=== PATIENT | male | born 1965 | race Caucasian/White ===

== ENCOUNTER 2020-05-25 09:05 | Inpatient (IN) | payer OTHER ==
[2020-05-25] MEDS ORDERED: KETOROLAC 15 MG/ML 1 ML VIAL IVP STA (10:22)
[2020-05-25] MEDS ORDERED: SODIUM CHLORIDE 0.9% 2,000 ML IV ONE (10:22)
[2020-05-25 10:31] LABS: Basophils % (A) 0 %; Eosinophils # (A) 0.4 k/uL (0-0.7); Eosinophils % (A) 2 %; HCT 51.9 % (39.0-53.0); HGB 18.1 gm/dL (13.0-17.5); Lymphocytes # (A) 1.1 k/uL (1.0-4.8); Lymphocytes % (A) 6 %; MCH 32.5 pg (25.0-35.0); MCHC 34.9 g/dL (31.0-37.0); MCV 93.2 fL (80.0-100.0); Mean Platelet Volume 7.7; Monocytes # (A) 0.8 k/uL (0-1.0); Monocytes % (A) 4 %; Neutrophils # (A) 15.6 k/uL (1.3-7.7); Neutrophils % (A) 86 %; Platelet Count 255 k/uL (150-450); RBC 5.57 m/uL (4.30-5.90); RDW 13.6 % (11.5-15.5)
[2020-05-25 10:37] LABS: Appearance,Urine Clear (Clear); Bilirubin,Urine 1+ (Negative); Blood,Urine Trace (Negative); Color,Urine Yellow; Glucose,Urine (UA) Negative (Negative); Hyaline Casts,Urine 4 /lpf (0-2); Ketones,Urine Negative (Negative); Leukocyte Esterase,Urine Small (Negative); Mucus,Urine Few /hpf; Nitrite,Urine Negative (Negative); Protein,Urine 1+ (Negative); RBC,Urine 3 /hpf (0-5); Specific Gravity,Urine 1.024 (1.001-1.035); WBC,Urine 8 /hpf (0-5)
[2020-05-25 10:46] LABS: Albumin 4.3 g/dL (3.5-5.0); Calcium 9.5 mg/dL (8.4-10.2); Potassium 4.4 mmol/L (3.5-5.1); Total Bilirubin 2.3 mg/dL (0.2-1.3); Total Protein 7.9 g/dL (6.3-8.2)
--- NOTE | 2020-05-25 10:58 | ED ---
Abdominal Pain HPI - General Chief Complaint: Abdominal Pain Stated Complaint: GALLBLADDER Time Seen by Provider: 05/25/20 10:10 Source: patient, RN notes reviewed Mode of arrival: ambulatory Limitations: no limitations - History of Present Illness Initial Comments: This a 54-year-old male presents emergency Department chief complaint of right- sided abdominal pain. Patient states started a few days ago, states he fell he ate too much, he did vomit several times. Though has not alleviated his symptoms. He states it does not matter what he eats or drinks at this point but states last 24 hours is not had any oral intake. Patient reports fevers chills draws not feeling well. Patient states that he's had some good bowel movements he got initially was constipated but states that has not helped either. No prior abdominal surgeries. - Related Data Home Medications Medication Instructions Recorded Confirmed Lisinopril [Prinivil] 10 mg PO DAILY 05/25/20 05/25/20 Allergies Allergy/AdvReac Type Severity Reaction Status Date / Time No Known Allergies Allergy Verified 05/25/20 10:52 Review of Systems ROS Statement: Those systems with pertinent positive or pertinent negative responses have been documented in the HPI. ROS Other: All systems not noted in ROS Statement are negative. Past Medical History Past Medical History: No Reported History History of Any Multi-Drug Resistant Organisms: None Reported Past Surgical History: No Surgical Hx Reported Past Psychological History: PTSD Smoking Status: Never smoker Past Alcohol Use History: Occasional Past Drug Use History: None Reported General Exam Limitations: no limitations General appearance: alert, in no apparent distress Head exam: Present: atraumatic, normocephalic, normal inspection Eye exam: Present: normal appearance, PERRL, EOMI. Absent: scleral icterus, conjunctival injection, periorbital swelling ENT exam: Present: normal exam, normal oropharynx, mucous membranes moist Neck exam: Present: normal inspection, full ROM. Absent: tenderness, meningismus, lymphadenopathy Respiratory exam: Present: normal lung sounds bilaterally. Absent: respiratory distress, wheezes, rales, rhonchi, stridor Cardiovascular Exam: Present: regular rate, normal rhythm, normal heart sounds. Absent: systolic murmur, diastolic murmur, rubs, gallop, clicks GI/Abdominal exam: Present: soft, tenderness (Moderate right-sided upper and lower), normal bowel sounds. Absent: distended, guarding, rebound, rigid Back exam: Absent: CVA tenderness (R), CVA tenderness (L) Neurological exam: Present: alert Skin exam: Present: warm, dry, intact, normal color. Absent: rash Course Vital Signs 05/25/20 09:09 Temperature 97.9 F Pulse Rate 93 Respiratory 18 Rate Blood Pressure 147/98 O2 Sat by Pulse 97 Oximetry Medical Decision Making - Medical Decision Making Patient CT shows of evidence of acute cholecystitis. There is questionable renal mass. Patient will be admitted to surgery was started on broad-spectrum antibiotics. Case discussed with Dr. Mcgarry. EKG will be obtained. - Lab Data Result diagrams: 05/25/20 10:19 05/25/20 10:19 Lab Results 05/25/20 05/25/20 05/25/20 Range/Units 10:19 10:19 10:19 WBC 18.0 H (3.8-10.6) k/uL RBC 5.57 (4.30-5.90) m/uL Hgb 18.1 H (13.0-17.5) gm/dL Hct 51.9 (39.0-53.0) % MCV 93.2 (80.0-100.0) fL MCH 32.5 (25.0-35.0) pg MCHC 34.9 (31.0-37.0) g/dL RDW 13.6 (11.5-15.5) % Plt Count 255 (150-450) k/uL MPV 7.7 Neutrophils % 86 % Lymphocytes % 6 % Monocytes % 4 % Eosinophils % 2 % Basophils % 0 % Neutrophils # 15.6 H (1.3-7.7) k/uL Lymphocytes # 1.1 (1.0-4.8) k/uL Monocytes # 0.8 (0-1.0) k/uL Eosinophils # 0.4 (0-0.7) k/uL Basophils # 0.0 (0-0.2) k/uL Sodium 137 (137-145) mmol/L Potassium 4.4 (3.5-5.1) mmol/L Chloride 100 (98-107) mmol/L Carbon Dioxide 24 (22-30) mmol/L Anion Gap 13 mmol/L BUN 16 (9-20) mg/dL Creatinine 1.09 (0.66-1.25) mg/dL Est GFR (CKD-EPI)AfAm 89 (>60 ml/min/1.73 sqM) Est GFR (CKD-EPI)NonAf 77 (>60 ml/min/1.73 sqM) Glucose 118 H (74-99) mg/dL Plasma Lactic Acid Mike (0.7-2.0) mmol/L Calcium 9.5 (8.4-10.2) mg/dL Total Bilirubin 2.3 H (0.2-1.3) mg/dL AST 30 (17-59) U/L ALT 21 (4-49) U/L Alkaline Phosphatase 73 (38-126) U/L Total Protein 7.9 (6.3-8.2) g/dL Albumin 4.3 (3.5-5.0) g/dL Amylase 55 (30-110) U/L Lipase 53 (23-300) U/L Urine Color Yellow Urine Appearance Clear (Clear) Urine pH 6.0 (5.0-8.0) Ur Specific [place] 1.024 (1.001-1.035) Urine Protein 1+ H (Negative) Urine Glucose (UA) Negative (Negative) Urine Ketones Negative (Negative) Urine Blood Trace H (Negative) Urine Nitrite Negative (Negative) Urine Bilirubin 1+ H (Negative) Urine Urobilinogen 3.0 (<2.0) mg/dL Ur Leukocyte Esterase Small H (Negative) Urine RBC 3 (0-5) /hpf Urine WBC 8 H (0-5) /hpf Hyaline Casts 4 H (0-2) /lpf Urine Mucus Few H (None) /hpf 05/25/20 Range/Units 10:24 WBC (3.8-10.6) k/uL RBC (4.30-5.90) m/uL Hgb (13.0-17.5) gm/dL Hct (39.0-53.0) % MCV (80.0-100.0) fL MCH (25.0-35.0) pg MCHC (31.0-37.0) g/dL RDW (11.5-15.5) % Plt Count (150-450) k/uL MPV Neutrophils % % Lymphocytes % % Monocytes % % Eosinophils % % Basophils % % Neutrophils # (1.3-7.7) k/uL Lymphocytes # (1.0-4.8) k/uL Monocytes # (0-1.0) k/uL Eosinophils # (0-0.7) k/uL Basophils # (0-0.2) k/uL Sodium (137-145) mmol/L Potassium (3.5-5.1) mmol/L Chloride (98-107) mmol/L Carbon Dioxide (22-30) mmol/L Anion Gap mmol/L BUN (9-20) mg/dL Creatinine (0.66-1.25) mg/dL Est GFR (CKD-EPI)AfAm (>60 ml/min/1.73 sqM) Est GFR (CKD-EPI)NonAf (>60 ml/min/1.73 sqM) Glucose (74-99) mg/dL Plasma Lactic Acid Mike 1.2 (0.7-2.0) mmol/L Calcium (8.4-10.2) mg/dL Total Bilirubin (0.2-1.3) mg/dL AST (17-59) U/L ALT (4-49) U/L Alkaline Phosphatase (38-126) U/L Total Protein (6.3-8.2) g/dL Albumin (3.5-5.0) g/dL Amylase (30-110) U/L Lipase (23-300) U/L Urine Color Urine Appearance (Clear) Urine pH (5.0-8.0) Ur Specific [place] (1.001-1.035) Urine Protein (Negative) Urine Glucose (UA) (Negative) Urine Ketones (Negative) Urine Blood (Negative) Urine Nitrite (Negative) Urine Bilirubin (Negative) Urine Urobilinogen (<2.0) mg/dL Ur Leukocyte Esterase (Negative) Urine RBC (0-5) /hpf Urine WBC (0-5) /hpf Hyaline Casts (0-2) /lpf Urine Mucus (None) /hpf Disposition Clinical Impression: Acute cholecystitis Disposition: ADMITTED IP TO THIS HOSP Condition: Fair Referrals: Dayne Hyde DO [Primary Care Provider] - 1-2 days
--- NOTE | 2020-05-25 11:14 | CT ---
EXAMINATION TYPE: CT abdomen pelvis w con DATE OF EXAM: 05/25/2020 COMPARISON: None HISTORY: RUQ pain with abdominal distension. CT DLP: 1471.9 mGycm CONTRAST: CT scan of the abdomen and pelvis is performed without Oral Contrast and with IV Contrast, patient in jected with 100 mL of Isovue 300. FINDINGS: LUNG BASES-: No visible nodule. No infiltrate. Basilar linear atelectasis noted. LIVER/GB: There is distention of the gallbladder with gallbladder wall thickening and pericholecystic inflammatory change. The findings are felt to be compatible with acute cholecystitis. No space occup zack hepatic lesion. Biliary tree is of normal caliber. PANCREAS: No inflammation. No distinct mass. SPLEEN: No splenic enlargement. No lesion seen. ADRENALS: No nodule. Mild left-sided adrenal glandular hyperplasia. KIDNEYS/BLADDER: No hydronephrosis. No nephrolithiasis. Solid exophytic mass arising from the lower pole of the right kidney measuring 3.6 cm in maximal dimension. Neoplasm is not excluded. Urology co nsult advised. Urinary bladder grossly unremarkable. BOWEL: Normal appendix. Normal bowel caliber. No inflammation. GENITAL ORGANS: No gross abnormality. LYMPH NODES: No greater than 1cm abdominal or pelvic lymph nodes are appreciated. AORTA: No significant abnormality. OSSEOUS STRUCTURES: No significant abnormality is seen. OTHER: There is a fat-containing right inguinal hernia. IMPRESSION: 1. Findings are compatible with acute cholecystitis. 2. Solid mass arising from the lower pole of the right kidney. Malignancy such as a renal cell carcin champ not excluded.
[2020-05-25] MEDS ORDERED: PIPERACILLIN-TAZOBACTAM 3.375 GM in SODIUM CHLORIDE 0.9% 100 ML IVPB STA (11:20)
[2020-05-25] MEDS ORDERED: NALOXONE 0.4 MG/ML 1 ML VIAL IV PRN (11:33)
[2020-05-25] MEDS ORDERED: HYDROmorphone 0.5 MG/0.5 ML SYRINGE IVP PRN (11:33)
[2020-05-25] MEDS ORDERED: ONDANSETRON 4 MG/2 ML VIAL IVP PRN (11:33)
[2020-05-25] MEDS: SODIUM CHLORIDE 0.9% 1,000 ML IV SCH (12:15)
[2020-05-25] MEDS ORDERED: ACETAMINOPHEN TAB 500 MG TAB PO PRN (13:12)
[2020-05-25] MEDS: KETOROLAC 15 MG/ML 1 ML VIAL IVP SCH ×2 (13:36→18:31)
--- NOTE | 2020-05-25 14:55 | P.GSHP ---
History of Present Illness H&P Date: 05/25/20 CHIEF COMPLAINT: Right upper quadrant abdominal pain HISTORY OF PRESENT ILLNESS: The patient is a 54 year old male who 2 days ago on Tuesday ate chicken lucía at [employer] developed progressive right upper quadrant abdominal pain. He is an army nurse. He tried to induce emesis without improvement of symptoms. No known family history of gallbladder disease. He reports having fevers and chills at home. With the severity of his abdominal pain including clinical symptoms, he presented to the emergency room. Additional diagnostic studies including CT of the abdomen and pelvis demonstrated acute cholecystitis. PAST MEDICAL HISTORY: See list and reviewed PAST SURGICAL HISTORY: See list and reviewed MEDICATIONS: See list and reviewed ALLERGIES: See list and reviewed SOCIAL HISTORY: See list and reviewed FAMILY HISTORY: See list and reviewed REVIEW OF ORGAN SYSTEMS: CONSTITUTIONAL: Had fevers and chills. No recent weight loss. EYES: Denies any trouble with vision. No glasses. HEENT: No difficulties with hearing. No nosebleeds. No difficulty swallowing. RESPIRATORY: Denies pneumonia. Denies any troubles with breathing or dyspnea on exertion. CARDIOVASCULAR: Denies any chest pain, palpitations, or recent heart attacks. GASTROINTESTINAL: Denies fatty food intolerance. Denies change in bowel habits and gas bloat. GENITOURINARY: Denies any blood in urine or increased urinary frequency. NEUROLOGICAL: Denies any numbness or tingling along the distal extremities. No seizure disorders or headaches. MUSCULOSKELETAL: Denies any back pain, stiffness or joint arthritis. SKIN: No current skin cancer. No rash. PSYCHIATRIC: Denies current depression or suicidal thoughts. ENDOCRINE: Denies current thyroid disorders. Has diabetes type 2 [id number]-[id number]. HEME/LYMPHATIC: Denies any lumps and bumps around the neck. No recent deep venous thrombosis. ALLERGY/IMMUNOLOGY: No immunoglobulin therapy. No immune deficiencies. BREAST: Denies current breast lumps, pain or nipple discharge. PHYSICAL EXAM: VITALS: Reviewed CONSTITUTIONAL: Well developed and in no acute distress. EYES: Conjuctivae without sclera icterus. Extraocular movements grossly intact. HEAD, EARS, NOSE, THROAT: Moist buccal mucosa. Head is atraumatic, normocephalic. Hears conversational speech. No nasal drainage. NECK: Supple. No JV distention. No thyroidomegaly. RESPIRATORY: Non-labored respirations and equal bilateral excursions. No gross wheezes. CARDIOVASCULAR: Regular rate and rhythm. Extremities without moderate edema. Palpable 2+ radial pulses. ABDOMEN: Soft. Right upper quadrant tenderness with localized peritonitis. LYMPH: No neck lymphadenopathy. MUSCULOSKELETAL: Nail and fingers with good capillary refill. SKIN: Warm and well perfused with good skin turgor. NEUROLOGIC: Cranial nerves II through XII grossly intact. Sensation upper and extremities intact. No focal or lateralizing signs. PSYCH: Appropriate affect. Alert and oriented to person, place and time. Displays appropriate insight. CLINCAL LABS: Reviewed. WBC elevated over 18,000 on admission. Total bilirubin elevated 2.3. Coronavirus negative. IMAGING: CT of the abdomen and pelvis and the pelvic independently reviewed demonstrating pericholecystic fluid with thickened gallbladder wall consistent with acute cholecystitis. Fat-containing umbilical hernia identified. Features of diverticulosis without diverticulitis on the sigmoid colon identified. This is my independent interpretation. RADIOLOGY: Report reviewed of CT of the abdomen and pelvis with right fat- containing inguinal hernia. Right inferior pole neoplasm suspicious for neopl asm identified over 3 cm. Renal cell carcinoma cannot be excluded. ASSESSMENT: 1. Acute cholecystitis with peritonitis and sepsis 2. Diabetes type 2, [id number] 3. Abnormal computed tomography scan for renal cell neoplasm 4. Sigmoid diverticulosis without diverticulitis 5. Fat-containing umbilical hernia 6. Fat-containing right inguinal hernia PLAN: 1. Recommend low fat diet 2. NPO after midnight. 3. Broad-spectrum IV antibiotics including Zosyn and Flagyl initiated to a ddress severity of acute cholecystitis 4. I personally reviewed CT scan. He has moderate right upper quadrant pain. Risks of complications reviewed including, bile duct injury as well as subtotal cholecystectomy placement drains were reviewed. Robotic cholecystectomy described. 5. Patient is at elevated risk for complications due to severity of acute cholecystitis 6. Inpatient hospitalization greater than 2 days advised for peritonitis and sepsis Past Medical History Past Medical History: No Reported History History of Any Multi-Drug Resistant Organisms: None Reported Past Surgical History: No Surgical Hx Reported Past Psychological History: PTSD Smoking Status: Never smoker Past Alcohol Use History: Occasional Past Drug Use History: None Reported Medications and Allergies Home Medications Medication Instructions Recorded Confirmed Type Fluticasone Nasal [place] [Flonase 1 spr EA NOSTRIL DAILY PRN 05/25/20 05/25/20 History Nasal [place]] Sildenafil Citrate [Viagra] 50 mg PO ONCE PRN 05/25/20 05/25/20 History lisinopriL [Zestril] 20 mg PO DAILY 05/25/20 05/25/20 History Allergies Allergy/AdvReac Type Severity Reaction Status Date / Time No Known Allergies Allergy Verified 05/25/20 10:52 Surgical - Exam Vital Signs Temp Pulse Resp BP Pulse Ox 97.9 F 93 18 147/98 97 05/25/20 09:09 05/25/20 09:09 05/25/20 09:09 05/25/20 09:09 05/25/20 09:09 Results - Labs 05/26/20 05:37 05/26/20 05:37 Abnormal Lab Results - Last 24 Hours (Table) 05/25/20 05/25/20 05/25/20 Range/Units 10:19 10:19 10:19 WBC 18.0 H (3.8-10.6) k/uL Hgb 18.1 H (13.0-17.5) gm/dL Neutrophils # 15.6 H (1.3-7.7) k/uL Glucose 118 H (74-99) mg/dL Total Bilirubin 2.3 H (0.2-1.3) mg/dL Urine Protein 1+ H (Negative) Urine Blood Trace H (Negative) Urine Bilirubin 1+ H (Negative) Ur Leukocyte Esterase Small H (Negative) Urine WBC 8 H (0-5) /hpf Hyaline Casts 4 H (0-2) /lpf Urine Mucus Few H (None) /hpf Diabetes panel 05/25/20 Range/Units 10:19 Sodium 137 (137-145) mmol/L Potassium 4.4 (3.5-5.1) mmol/L Chloride 100 (98-107) mmol/L Carbon Dioxide 24 (22-30) mmol/L BUN 16 (9-20) mg/dL Creatinine 1.09 (0.66-1.25) mg/dL Glucose 118 H (74-99) mg/dL Calcium 9.5 (8.4-10.2) mg/dL AST 30 (17-59) U/L ALT 21 (4-49) U/L Alkaline Phosphatase 73 (38-126) U/L Total Protein 7.9 (6.3-8.2) g/dL Albumin 4.3 (3.5-5.0) g/dL Calcium panel 05/25/20 Range/Units 10:19 Calcium 9.5 (8.4-10.2) mg/dL Albumin 4.3 (3.5-5.0) g/dL Pituitary panel 05/25/20 Range/Units 10:19 Sodium 137 (137-145) mmol/L Potassium 4.4 (3.5-5.1) mmol/L Chloride 100 (98-107) mmol/L Carbon Dioxide 24 (22-30) mmol/L BUN 16 (9-20) mg/dL Creatinine 1.09 (0.66-1.25) mg/dL Glucose 118 H (74-99) mg/dL Calcium 9.5 (8.4-10.2) mg/dL Adrenal panel 05/25/20 Range/Units 10:19 Sodium 137 (137-145) mmol/L Potassium 4.4 (3.5-5.1) mmol/L Chloride 100 (98-107) mmol/L Carbon Dioxide 24 (22-30) mmol/L BUN 16 (9-20) mg/dL Creatinine 1.09 (0.66-1.25) mg/dL Glucose 118 H (74-99) mg/dL Calcium 9.5 (8.4-10.2) mg/dL Total Bilirubin 2.3 H (0.2-1.3) mg/dL AST 30 (17-59) U/L ALT 21 (4-49) U/L Alkaline Phosphatase 73 (38-126) U/L Total Protein 7.9 (6.3-8.2) g/dL Albumin 4.3 (3.5-5.0) g/dL Assessment and Plan (1) Renal neoplasm Current Visit: Yes Status: Acute Code(s): D49.519 - NEOPLASM OF UNSPECIFIED BEHAVIOR OF UNSPECIFIED KIDNEY SNOMED Code(s): 540997548 (2) Peritonitis Current Visit: Yes Status: Acute Code(s): K65.9 - PERITONITIS, UNSPECIFIED SNOMED Code(s): 82355864 (3) Sepsis Current Visit: Yes Status: Acute Code(s): A41.9 - SEPSIS, UNSPECIFIED ORGANISM SNOMED Code(s): 80510704 (4) Right inguinal hernia Current Visit: Yes Status: Acute Code(s): K40.90 - UNIL INGUINAL HERNIA, W/O OBST OR GANGR, NOT SPCF RECUR SNOMED Code(s): 854241401 (5) Umbilical hernia Current Visit: Yes Status: Acute Code(s): K42.9 - UMBILICAL HERNIA WITHOUT OBSTRUCTION OR GANGRENE SNOMED Code(s): 896151697 (6) Acute cholecystitis Current Visit: Yes Status: Acute Code(s): K81.0 - ACUTE CHOLECYSTITIS SNOMED Code(s): 66677627
[2020-05-25] MEDS: metroNIDAZOLE-NS PMX 500 MG in SALINE 1 100ML.BAG IVPB SCH (16:48)
[2020-05-25] MEDS: PIPERACILLIN-TAZOBACTAM 3.375 GM in SODIUM CHLORIDE 0.9% 100 ML IVPB SCH (18:05)
[2020-05-25] MEDS: ACETAMINOPHEN TAB 500 MG TAB PO SCH (18:30)
[2020-05-26] MEDS: SODIUM CHLORIDE 0.9% 1,000 ML IV SCH ×3 (00:11→16:47)
[2020-05-26] MEDS: PIPERACILLIN-TAZOBACTAM 3.375 GM in SODIUM CHLORIDE 0.9% 100 ML IVPB SCH ×3 (00:12→16:52)
[2020-05-26] MEDS: metroNIDAZOLE-NS PMX 500 MG in SALINE 1 100ML.BAG IVPB SCH ×3 (00:12→16:57)
[2020-05-26] MEDS: KETOROLAC 15 MG/ML 1 ML VIAL IVP SCH ×4 (00:13→16:51)
[2020-05-26] MEDS: ACETAMINOPHEN TAB 500 MG TAB PO SCH ×4 (00:13→17:53)
[2020-05-26] MEDS ORDERED: GABAPENTIN 300 MG CAP PO PRN (04:43)
[2020-05-26] MEDS ORDERED: INDOCYANINE GREEN 25 MG VIAL IV PRN (04:43)
[2020-05-26] MEDS ORDERED: TAMSULOSIN 0.4 MG CAP.ER.24H PO PRN (04:43)
[2020-05-26] MEDS ORDERED: SODIUM CHLORIDE 0.9% 1,000 ML IV ONE (04:46)
[2020-05-26 08:42] LABS: Basophils # (A) 0.04 X 10*3/uL (0.00-0.10); Basophils % (A) 0.3 %; Eosinophils # (A) 0.69 X 10*3/uL (0.04-0.35); Eosinophils % (A) 5.8 %; HCT 43.6 % (39.6-50.0); Lymphocytes # (A) 1.48 X 10*3/uL (0.90-5.00); Lymphocytes % (A) 12.4 %; MCHC 32.1 g/dL (32.0-37.0); MCV 96.7 fL (80.0-97.0); Mean Platelet Volume 10.2 fL (9.5-12.2); Monocytes # (A) 0.79 X 10*3/uL (0.20-1.00); Monocytes % (A) 6.6 %; Neutrophils # (A) 8.88 X 10*3/uL (1.80-7.70); Neutrophils % (A) 74.6 %; Platelet Count 244 X 10*3/uL (140-440); RBC 4.51 X 10*6/uL (4.40-5.60); RDW 13.7 % (11.5-14.5); WBC 11.92 X 10*3/uL (4.50-10.00)
[2020-05-26 09:53] LABS: African American GFR (CKD) 71.7 (60.0-200.0); Albumin 3.3 g/dL (3.80-4.90); Albumin/Globulin Ratio 1.57 (1.60-3.17); Anion Gap 5.5 mmol/L (4.00-12.00); BUN/Creat Ratio 14.62 Ratio (12.00-20.00); Calcium 8.3 mg/dL (8.7-10.3); Carbon Dioxide 25.5 mmol/L (21.6-31.8); Globulin 2.1 g/dL (1.6-3.3); Non-African American GFR(CKD) 61.9 (60.0-200.0); Potassium 4.1 mmol/L (3.5-5.5); Total Bilirubin 1.5 mg/dL (0.3-1.2); Total Protein 5.4 g/dL (6.2-8.2)
[2020-05-26] MEDS: lisinopriL 20 MG TAB PO SCH (12:05)
--- NOTE | 2020-05-26 12:54 | P.PN ---
Subjective Progress Note Date: 05/26/20 CHIEF COMPLAINT: Right upper quadrant abdominal pain HISTORY OF PRESENT ILLNESS: The patient is a 54 year old male admitted with acute cholecystitis with findings on computed tomography scan. He's been placed on scheduled IV antibiotics. He still reports moderate right upper quadrant abdominal pain. REVIEW OF ORGAN SYSTEMS: Low-grade temperature 99.0. No chest pain. No shortness of breath. PHYSICAL EXAM: VITALS: Reviewed CONSTITUTIONAL: Well developed and in no acute distress. EYES: Conjuctivae without sclera icterus. Extraocular movements grossly intact. HEAD, EARS, NOSE, THROAT: Moist buccal mucosa. Head is atraumatic, normocephalic. Hears conversational speech. No nasal drainage. NECK: Supple. No JV distention. No thyroidomegaly. RESPIRATORY: Non-labored respirations and equal bilateral excursions. No gross wheezes. CARDIOVASCULAR: Regular rate and rhythm. Palpable 2+ radial pulses. ABDOMEN: Soft. Right upper quadrant tenderness with localized peritonitis. MUSCULOSKELETAL: Nail and fingers with good capillary refill. SKIN: Warm and well perfused with good skin turgor. NEUROLOGIC: Cranial nerves II through XII grossly intact. Sensation upper and extremities intact. No focal or lateralizing signs. PSYCH: Appropriate affect. Alert and oriented to person, place and time. Displays appropriate insight. CLINCAL LABS: Reviewed. WBC elevated over 18,000 on admission improved to over 11,000. ASSESSMENT: 1. Acute cholecystitis with peritonitis and sepsis 2. Diabetes type 2, [id number] 3. Abnormal computed tomography scan for renal cell neoplasm 4. Sigmoid diverticulosis without diverticulitis 5. Fat-containing umbilical hernia 6. Fat-containing right inguinal hernia PLAN: 1. Recommend nothing by mouth. 2. Inpatient hospitalization for acute cholecystitis with presentation of peritonitis and sepsis 3. Robotic cholecystectomy described which patient's elevated risk for complications Objective - Vital Signs Vital signs: Vital Signs Temp 99.2 F 05/26/20 10:00 Pulse 81 05/26/20 10:00 Resp 18 05/26/20 10:00 BP 164/95 05/26/20 10:00 Pulse Ox 98 05/26/20 10:00 Intake & Output 05/25/20 05/26/20 05/26/20 18:59 06:59 18:59 Weight 97.522 kg Other: Voiding Method Toilet # Voids 1 - Labs CBC & Chem 7: 05/26/20 05:37 05/26/20 05:37 Labs: Abnormal Lab Results - Last 24 Hours (Table) 05/26/20 05/26/20 Range/Units 05:37 05:37 WBC 11.92 H (4.50-10.00) X 10*3/uL Neutrophils # 8.88 H (1.80-7.70) X 10*3/uL Eosinophils # 0.69 H (0.04-0.35) X 10*3/uL Calcium 8.3 L (8.7-10.3) mg/dL Total Bilirubin 1.5 H (0.3-1.2) mg/dL Total Protein 5.4 L (6.2-8.2) g/dL Albumin 3.30 L (3.80-4.90) g/dL Albumin/Globulin Ratio 1.57 L (1.60-3.17) g/dL Assessment and Plan (1) Acute cholecystitis Current Visit: Yes Status: Acute Code(s): K81.0 - ACUTE CHOLECYSTITIS SNOMED Code(s): 44243938 (2) Peritonitis Current Visit: Yes Status: Acute Code(s): K65.9 - PERITONITIS, UNSPECIFIED SNOMED Code(s): 29344574 (3) Renal neoplasm Current Visit: Yes Status: Acute Code(s): D49.519 - NEOPLASM OF UNSPECIFIED BEHAVIOR OF UNSPECIFIED KIDNEY SNOMED Code(s): 469870074 (4) Right inguinal hernia Current Visit: Yes Status: Acute Code(s): K40.90 - UNIL INGUINAL HERNIA, W/O OBST OR GANGR, NOT SPCF RECUR SNOMED Code(s): 883793274 (5) Sepsis Current Visit: Yes Status: Acute Code(s): A41.9 - SEPSIS, UNSPECIFIED ORGANISM SNOMED Code(s): 53692957 (6) Umbilical hernia Current Visit: Yes Status: Acute Code(s): K42.9 - UMBILICAL HERNIA WITHOUT OBSTRUCTION OR GANGRENE SNOMED Code(s): 168402741
[2020-05-26] MEDS ORDERED: IV FLUID CONTINUATION 700 ML IV ONE (17:43)
[2020-05-26] MEDS ORDERED: HEPARIN SODIUM,PORCINE 5,000 UNIT/ML 1 ML VIAL ONE (17:52)
[2020-05-26] MEDS ORDERED: fentaNYL (PF) 50 MCG/ML 2 ML AMP ONE (18:23)
[2020-05-26] MEDS ORDERED: MIDAZOLAM 2 MG/2 ML VIAL ONE (18:23)
[2020-05-26] MEDS ORDERED: KETOROLAC 15 MG/ML 1 ML VIAL ONE (18:23)
[2020-05-26] MEDS ORDERED: ROCURONIUM 10 MG/ML (5 ML VIAL) IV ONE (18:23)
[2020-05-26] MEDS ORDERED: ONDANSETRON 4 MG/2 ML VIAL ONE (18:23)
[2020-05-26] MEDS ORDERED: HYDROmorphone (PF) 1 MG/ML ONE (18:23)
[2020-05-26] MEDS ORDERED: GLYCOPYRROLATE 0.2 MG/ML 2 ML VIAL ONE (18:23)
[2020-05-26] MEDS ORDERED: NEOSTIGMINE 1 MG/ML 10 ML VIAL ONE (18:23)
[2020-05-26] MEDS ORDERED: LIDOCAINE 1% INJ 10MG/ML (20 ML MDV) ONE (18:23)
[2020-05-26] MEDS ORDERED: INDOCYANINE GREEN 25 MG VIAL IV ONE (18:23)
[2020-05-26] MEDS ORDERED: PROPOFOL 10 MG/ML 20 ML VIAL IV ONE (18:23)
[2020-05-26] MEDS ORDERED: DEXAMETHASONE SOD PHOSPHATE 10 MG/ML 1 ML VIAL ONE (18:23)
[2020-05-26] MEDS ORDERED: LIDOCAINE 1%-EPI 1:100,000 20 ML VIAL SQ ONE (18:46)
[2020-05-26] MEDS ORDERED: LACTATED RINGERS 1,000 ML IV ONE ×4 (19:21→22:05)
--- NOTE | 2020-05-26 22:11 | P.OP ---
Date of Procedure: 05/26/20 Description of Procedure: SURGEON: FELTON CHUADHRY MD PREOPERATIVE DIAGNOSES: 1. Acute cholecystitis with sepsis 2. Diabetes type 2, [id number] 3. Abnormal computed tomography scan for inferior pole right renal neoplasm 4. Obesity due to excess calories 5. Hypertensive heart disease POSTOPERATIVE DIAGNOSES: 1. Acute gangrenous cholecystitis with cystic duct obstruction due to gallstones causing sepsis 2. Diabetes type 2, [id number] 3. Abnormal computed tomography scan for inferior pole right renal neoplasm 4. Obesity due to excess calories 5. Hypertensive heart disease 6. Peritoneal adhesions per cholecystectomy OPERATION: 1. Robotic-assisted da Andrew Xi laparoscopic lysis of adhesions over 1 hour 2. Robotic-assisted da Andrew Xi laparoscopic cholecystectomy, multiport with FIREFLY ESTIMATED BLOOD LOSS: 100 mL. SPECIMENS REMOVED: Gallbladder. COMPLICATIONS: None. OPERATIVE FINDINGS: 1. Acute gangrenous cholecystitis with hydrops and distended gallbladder 2. Indocyanine green drain confirms acute cholecystitis with lack of contrast in gallbladder 3. Stapler across cystic duct 4. Pericholecystic adhesions lysed. INDICATIONS: The patient is a 54 year-old female who presents with epigastric right upper quadrant pain, symptomatic gallstones, WBC over 18,000, fevers or chills, and clinical features of acute cholecystitis with presentation of sepsis. Antibiotic management including pain management was administered to manage her cholecystitis. Surgical intervention with cholecystectomy was described. Robotic assisted laparoscopic approach was described. Benefits and risks of the procedure including but not limited to bleeding, infection, injury to the biliary tree was reviewed. Informed consent was obtained. DESCRIPTION OF PROCEDURE: Patient was brought to the operating room, placed in supine position. After general induction, the abdomen had been prepped and draped in standard sterile fashion. The robotic da Andrew XI system was primed. After a timeout protocol was performed, the patient had been prepped and draped in standard sterile fashion. The patient was injected with indocyanine green. A 5 mm 0 degrees laparoscopic trocar entry was performed along the left upper quadrant. The abdomen insufflated to 15 mmHg pressure which was tolerated well. Diagnostic laparoscopy demonstrated no injury to bowel viscera or mesentery. The liver surface was unremarkable. A moderately distended gallbladder was identified adding complexity to the case. Next, two 8 mm robotic ports were placed along the right upper abdomen. The camera 8-mm port was maintained along the epigastrium. Another 8 mm port was placed along the left upper abdominal wall after exchanging the 5 mm port. Please note that the ports were placed at least 10 to 15 cm away from the target anatomy of the gallbladder. The robot was docked along the left lateral abdomen. The patient was repositioned in reverse Trendelenburg position with the right side up. Using a grasper for arm 3, a grasper for arm 4, including hook cautery for arm 1, the robotic system was docked and primed as described. Instruments were interchanged by the document control assistant including hook cautery, Bovie cautery and clip appliers. Additional instruments including VasoSeal or an robotic stapler were obtained. I had sat at the console. Dense omental adhesions had completely encased the gallbladder. Lysis of adhesions was performed to free the gallbladder from its surrounding tissues. The gallbladder was reflected towards the dome of the liver. The gallbladder was moderately distended adding complexity to the case. Moderate edema was found along the cystic triangle including infundibulum. Initial dissection was performed on the gallbladder infundibulum using indocyanine green to illuminate the cystic duct and common bile duct. Due to moderate distention of the infundibulum, dome down technique was performed removing the gallbladder from the hepatic fossa starting from the fundus towards the infundibulum. Using a sponge, the liver was reflected towards the diaphragm and starting at the gallbladder fundus, hook cautery including vessel sealer for used to incise sac the gallbladder from the liver. As the gallbladder was dissected from the hepatic fossa, hemostasis was checked using vessel sealer along the posterior gallbladder. Next, indocyanine green was used to confirm the common bile duct as well as cystic duct, but poorly visualized. The entire gallbladder was without contrast consistent with acute cholecystitis. The infundibulum was dissected free from the surrounding tissues along the posterior aspect. Large PLASTIC clips were used throughout the entire case. Using a clip baseball umpire for little league, a clip was placed at the junction of the infundibulum and cystic duct. Secondary to the density of the thickness of the gallbladder wall, a 45 mm green robotic staple load was used to resect the rest of the gallbladder. Hemostasis was checked and found to be adequate. The robot was undocked. I re-scrubbed into the case. A 15 mm Endo Catch bag was used to remove the gallbladder in total via the left upper quadrant incision after widening the incision. The specimen was removed from the abdominal cavity. Roldan Mendoza and 0 Vicryl was used to close the fascial defect of the left upper quadrant. All pneumoperitoneum instruments were evacuated from the abdominal cavity. The incisions were cleansed using dilute hydrogen peroxide. The incisions were reapproximated using 4-0 Monocryl in an interrupted subcuticular fashion. Please note along the trocar sites, local anesthetic was placed as a field block prior to insertion of all instruments. Liquid glue was applied to the skin. At the end of the procedure needle, sponge, and instrument count had been verified correct by the surgical technology instructor. The patient was transferred to postanesthesia care unit in stable condition. Intraoperative films were shared with the patient's family who were pleased with the level of care.
[2020-05-26] MEDS ORDERED: HYDROmorphone 0.5 MG/0.5 ML SYRINGE IVP ONE (22:40)
--- NOTE | 2020-05-26 23:54 | P.PN ---
Progress Note - Text Progress Note Date: 05/26/20 Patient seen following surgery. He started tolerating diet. His pain is controlled. He feels great. He only complains of expected left upper quadrant incisional pain. Computed tomography scan findings including umbilical hernia, right inguinal hernia, right renal neoplasm described. Recommend consultation to urology for suspected renal cell cancer. Otherwise, patient stable for discharge after urology consultation.
[2020-05-27] MEDS: KETOROLAC 15 MG/ML 1 ML VIAL IVP SCH ×3 (00:09→12:18)
[2020-05-27] MEDS: metroNIDAZOLE-NS PMX 500 MG in SALINE 1 100ML.BAG IVPB SCH ×2 (00:12→07:33)
[2020-05-27] MEDS: SODIUM CHLORIDE 0.9% 1,000 ML IV SCH ×3 (00:12→12:18)
[2020-05-27] MEDS: PIPERACILLIN-TAZOBACTAM 3.375 GM in SODIUM CHLORIDE 0.9% 100 ML IVPB SCH ×2 (00:13→08:44)
[2020-05-27] MEDS: ACETAMINOPHEN TAB 500 MG TAB PO SCH ×3 (01:20→12:17)
[2020-05-27 07:20] VITALS: RESP 16
--- NOTE | 2020-05-27 07:31 | P.GSCN ---
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 He underwent an emergency cholecystectomy by Dr. David yesterday. The computed tomography scan that was performed during the initial evaluation showed a 3-1/2 cm right lower pole exophytic mass. The mass appeared solid with Hounsfield units around 70. The mass appears to have a uniform density and is somewhat circumscribed however with the Hounsfield units the risk of malignancy is entertained and for this reason we're asked see the patient. The patient has no urologic history. He has not had infection bleeding pain. There is no recent urologic evaluation to compare this present computed tomography scan with. He is postop cholecystectomy and doing well. Review of Systems All systems: negative Past Medical History Past Medical History: No Reported History Additional Past Medical History / Comment(s): fx C-2, broke neck, broke right wrist in highschool, fung on forearms from deployment. History of Any Multi-Drug Resistant Organisms: None Reported Past Surgical History: No Surgical Hx Reported Past Psychological History: PTSD Smoking Status: Never smoker Past Alcohol Use History: Occasional Past Drug Use History: None Reported Medications and Allergies Home Medications Medication Instructions Recorded Confirmed Type Fluticasone Nasal [place] [Flonase 1 spr EA NOSTRIL DAILY PRN 05/25/20 05/25/20 History Nasal [place]] Sildenafil Citrate [Viagra] 50 mg PO ONCE PRN 05/25/20 05/25/20 History lisinopriL [Zestril] 20 mg PO DAILY 05/25/20 05/25/20 History Allergies Allergy/AdvReac Type Severity Reaction Status Date / Time Mushroom Allergy Swelling Verified 05/26/20 18:29 Surgical - Exam Vital Signs Temp Pulse Resp BP Pulse Ox 97.9 F 93 18 147/98 97 05/25/20 09:09 05/25/20 09:09 05/25/20 09:09 05/25/20 09:09 05/25/20 09:09 - General well developed, well nourished, no distress - Eyes PERRL - ENT no hearing loss - Neck trachea midline - Respiratory normal expansion, normal respiratory effort - Cardiovascular Rhythm: regular - Abdomen Abdomen: soft, tender - Integumentary no rash, no growths - Neurologic normal sensation - Musculoskeletal normal gait, normal posture - Psychiatric oriented to time, oriented to person, oriented to place, speech is normal, memory intact Results - Labs 05/26/20 05:37 05/26/20 05:37 Abnormal Lab Results - Last 24 Hours (Table) 05/26/20 05/26/20 Range/Units 05:37 05:37 WBC 11.92 H (4.50-10.00) X 10*3/uL Neutrophils # 8.88 H (1.80-7.70) X 10*3/uL Eosinophils # 0.69 H (0.04-0.35) X 10*3/uL Calcium 8.3 L (8.7-10.3) mg/dL Total Bilirubin 1.5 H (0.3-1.2) mg/dL Total Protein 5.4 L (6.2-8.2) g/dL Albumin 3.30 L (3.80-4.90) g/dL Albumin/Globulin Ratio 1.57 L (1.60-3.17) g/dL Microbiology - Last 24 Hours (Table) 05/26/20 21:19 Anaerobic Culture - Preliminary Gallbladder Fluid 05/26/20 21:19 Wound Culture - Preliminary Other - Other Diabetes panel 05/26/20 Range/Units 05:37 Sodium 136 (135-145) mmol/L Potassium 4.1 (3.5-5.5) mmol/L Chloride 105 (96-109) mmol/L Carbon Dioxide 25.5 (21.6-31.8) mmol/L BUN 19.0 (9.0-27.0) mg/dL Creatinine 1.3 (0.6-1.5) mg/dL Glucose 104 (70-110) mg/dL Calcium 8.3 L (8.7-10.3) mg/dL AST 15 (14-35) U/L ALT 16 (10-49) U/L Alkaline Phosphatase 51 (41-126) U/L Total Protein 5.4 L (6.2-8.2) g/dL Albumin 3.30 L (3.80-4.90) g/dL Calcium panel 05/26/20 Range/Units 05:37 Calcium 8.3 L (8.7-10.3) mg/dL Albumin 3.30 L (3.80-4.90) g/dL Pituitary panel 05/26/20 Range/Units 05:37 Sodium 136 (135-145) mmol/L Potassium 4.1 (3.5-5.5) mmol/L Chloride 105 (96-109) mmol/L Carbon Dioxide 25.5 (21.6-31.8) mmol/L BUN 19.0 (9.0-27.0) mg/dL Creatinine 1.3 (0.6-1.5) mg/dL Glucose 104 (70-110) mg/dL Calcium 8.3 L (8.7-10.3) mg/dL Adrenal panel 05/26/20 Range/Units 05:37 Sodium 136 (135-145) mmol/L Potassium 4.1 (3.5-5.5) mmol/L Chloride 105 (96-109) mmol/L Carbon Dioxide 25.5 (21.6-31.8) mmol/L BUN 19.0 (9.0-27.0) mg/dL Creatinine 1.3 (0.6-1.5) mg/dL Glucose 104 (70-110) mg/dL Calcium 8.3 L (8.7-10.3) mg/dL Total Bilirubin 1.5 H (0.3-1.2) mg/dL AST 15 (14-35) U/L ALT 16 (10-49) U/L Alkaline Phosphatase 51 (41-126) U/L Total Protein 5.4 L (6.2-8.2) g/dL Albumin 3.30 L (3.80-4.90) g/dL - Imaging CT scan - abdomen: report reviewed, image reviewed CT scan - pelvis: report reviewed, image reviewed Assessment and Plan Assessment: Impression: Acute cholecystitis status post cholecystectomy. Right renal mass. Recommendations: This mass has high Hounsfield units and is concerning for a solid mass. The differential diagnosis would include hemorrhagic cyst, renal cell carcinoma or perhaps an oncocytoma. The Mass is exophytic in the right medial lower pole. I will review this with the radiologist to try to determine whether I wished to do any further imaging such as an MRI with contrast to whether he just needs to have this removed. This has been discussed with the patient. We'll make a follow-up appointment with him to see me in the next week or 2 after review the x-ray with radiology to set up a plan with him.
[2020-05-27] MEDS: lisinopriL 20 MG TAB PO SCH (07:34)
[2020-05-27] MEDS ORDERED: ENOXAPARIN 30 MG/0.3 ML SYRINGE SQ SCH (09:00)
[2020-05-27] MEDS ORDERED: FLUTICASONE 50MCG/SPRAY NASAL 16GM EA NOSTRIL PRN (09:00)
[2020-05-27] MEDS ORDERED: PANTOPRAZOLE 40 MG/10 ML VIAL IV SCH (09:00)
[2020-05-27 09:37] LABS: Basophils # (A) 0.01 X 10*3/uL (0.00-0.10); Basophils % (A) 0.1 %; Eosinophils # (A) 0 X 10*3/uL (0.04-0.35); Eosinophils % (A) 0 %; HCT 40.6 % (39.6-50.0); Lymphocytes # (A) 0.52 X 10*3/uL (0.90-5.00); Lymphocytes % (A) 5.7 %; MCH 31.1 pg (27.0-32.0); MCV 97.1 fL (80.0-97.0); Mean Platelet Volume 10.2 fL (9.5-12.2); Monocytes # (A) 0.33 X 10*3/uL (0.20-1.00); Monocytes % (A) 3.6 %; Neutrophils # (A) 8.16 X 10*3/uL (1.80-7.70); Neutrophils % (A) 90.2 %; Platelet Count 298 X 10*3/uL (140-440); RBC 4.18 X 10*6/uL (4.40-5.60); RDW 13.8 % (11.5-14.5); WBC 9.06 X 10*3/uL (4.50-10.00)
[2020-05-27 10:22] LABS: African American GFR (CKD) 71.7 (60.0-200.0); Albumin 3.3 g/dL (3.80-4.90); Albumin/Globulin Ratio 1.57 (1.60-3.17); Anion Gap 5.9 mmol/L (4.00-12.00); BUN/Creat Ratio 13.85 Ratio (12.00-20.00); Calcium 8.4 mg/dL (8.7-10.3); Carbon Dioxide 26.1 mmol/L (21.6-31.8); Globulin 2.1 g/dL (1.6-3.3); Non-African American GFR(CKD) 61.9 (60.0-200.0); Potassium 4.7 mmol/L (3.5-5.5); Total Bilirubin 0.6 mg/dL (0.3-1.2); Total Protein 5.4 g/dL (6.2-8.2)
[2020-05-27 14:13] VITALS: BP 143/77; PULSE 59; TEMP 97.7
--- NOTE | 2020-05-27 14:34 | P.DS ---
Providers Date of admission: 05/26/20 22:11 Expected date of discharge: 05/27/20 Attending physician: Yazmin Mcgarry Consults: 05/26/20 04:44 Consult Physician Routine Consulting Provider: [facility] Consult Reason/Comments: [facility] Do you want consulting provider notified?: Yes 05/26/20 23:52 Consult Physician Routine Consulting Provider: Jose E Hernandez Consult Reason/Comments: Renal cell cancer CT new Do you want consulting provider notified?: Yes Primary care physician: Dayne Hyde Hospital Course: Discharge diagnosis 1. Acute gangrenous cholecystitis with cystic duct obstruction due to gallstones causing sepsis 2. Diabetes type 2, [id number] 3. Abnormal computed tomography scan for inferior pole right renal neoplasm 4. Obesity due to excess calories 5. Hypertensive heart disease 6. Peritoneal adhesions per cholecystectomy Hospital course The patient is a 54 year old male who 2 days ago on Tuesday ate chicken lucía at [employer] developed progressive right upper quadrant abdominal pain. He is an army nurse. He tried to induce emesis without improvement of symptoms. No known family history of gallbladder disease. He reports having fevers and chills at home. With the severity of his abdominal pain including clinical symptoms, he presented to the emergency room. Additional diagnostic studies i ncluding CT of the abdomen and pelvis demonstrated acute cholecystitis. And CT findings included umbilical hernia, right inguinal hernia, right renal neoplasm described. Patient is status post Robotic-assisted da Andrew Xi laparoscopic lysis of adhesions over 1 hour and Robotic-assisted da Andrew Xi laparoscopic cholecystectomy. Patient tolerated surgery well. His pain is controlled. He is tolerating diet. He is up and ambulating. He is passing gas. He denies any difficulty urinating. He is afebrile. Patient was also evaluated by urology regarding the renal neoplasm. Urology has cleared patient for discharge and recommend further follow-up in the outpatient setting. Physician C[employer] Outreach Specialist note has been reviewed by physician. Signing provider agrees with the documented findings, assessment, and plan of care. Patient Condition at Discharge: Stable Plan - Discharge Summary Discharge Rx Participant: No New Discharge Prescriptions: New Acetaminophen Tab [Tylenol Tab] 650 mg PO Q4H PRN #30 tablet PRN Reason: Pain Ibuprofen [Motrin] 600 mg PO Q8HR PRN #30 tab PRN Reason: Pain Continue lisinopriL [Zestril] 20 mg PO DAILY Sildenafil Citrate [Viagra] 50 mg PO ONCE PRN PRN Reason: ED Fluticasone Nasal [place] [Flonase Nasal [place]] 1 spr EA NOSTRIL DAILY PRN PRN Reason: Allergy Symptoms Discharge Medication List Fluticasone Nasal [place] [Flonase Nasal [place]] 1 spr EA NOSTRIL DAILY PRN 05/25/20 [History] Sildenafil Citrate [Viagra] 50 mg PO ONCE PRN 05/25/20 [History] lisinopriL [Zestril] 20 mg PO DAILY 05/25/20 [History] Acetaminophen Tab [Tylenol Tab] 650 mg PO Q4H PRN #30 tablet 05/27/20 [Rx] Ibuprofen [Motrin] 600 mg PO Q8HR PRN #30 tab 05/27/20 [Rx] Follow up Appointment(s)/Referral(s): Dayne Hyde DO [Primary Care Provider] - 1-2 days Baldemar Eagle MD [STAFF PHYSICIAN] - 1 Week Yazmin Mcgarry MD [STAFF PHYSICIAN] - 06/03/20 Activity/Diet/Wound Care/Special Instructions: No lifting over 4 pounds in 4 weeks until June 23. June shower. No bath tub soaks for two weeks until June 09 Use Tylenol and ibuprofen scheduled for the next 24-48 hours for best pain relief. Use ice along incisions for the today to prevent swelling. Continue a low-fat diet Discharge Disposition: HOME SELF-CARE
== END 2020-05-27 14:45 | disposition home or self-care (01) | DRG 853 ==
LOC: EC 09:05 → 6NMEDSUR 11:38 → OBSVTOIN 05-26 22:11
PROVIDERS: ADMIT Surgery Plastic and Reconstructive Surgery; ATTEND Surgery Plastic and Reconstructive Surgery
PROC: BF50200 Other Imaging of Bile Ducts using Fluorescing Agent, Indocyanine Green Dye, Intraoperative (ICD-10-PCS; principal; 2020-05-26 10:05)
PROC: 8E0W4CZ Robotic Assisted Procedure of Trunk Region, Percutaneous Endoscopic Approach (ICD-10-PCS; principal; 2020-05-26 10:05)
PROC: 0DNU4ZZ Release Omentum, Percutaneous Endoscopic Approach (ICD-10-PCS; principal; 2020-05-26 10:05)
PROC: 0FT44ZZ Resection of Gallbladder, Percutaneous Endoscopic Approach (ICD-10-PCS; principal; 2020-05-26 10:05)
PROC: 0FN44ZZ Release Gallbladder, Percutaneous Endoscopic Approach (ICD-10-PCS; principal; 2020-05-26 10:05)
DX: A41.9 Sepsis, unspecified organism (principal); K65.9 Peritonitis, unspecified; K80.63 Calculus of gallbladder and bile duct with acute cholecystitis with obstruction; K82.1 Hydrops of gallbladder; K82.A1 Gangrene of gallbladder in cholecystitis; E11.9 Type 2 diabetes mellitus without complications; Z20.822 Contact with and (suspected) exposure to COVID-19; I11.9 Hypertensive heart disease without heart failure; K66.0 Peritoneal adhesions (postprocedural) (postinfection); K42.9 Umbilical hernia without obstruction or gangrene; K40.90 Unilateral inguinal hernia, without obstruction or gangrene, not specified as recurrent; K57.30 Diverticulosis of large intestine without perforation or abscess without bleeding; D41.01 Neoplasm of uncertain behavior of right kidney; F43.10 Post-traumatic stress disorder, unspecified; K59.00 Constipation, unspecified; E66.09 Other obesity due to excess calories; Z68.31 Body mass index [BMI] 31.0-31.9, adult; Z79.899 Other long term (current) drug therapy; Z87.81 Personal history of (healed) traumatic fracture; Z87.828 Personal history of other (healed) physical injury and trauma; Z91.018 Allergy to other foods
CPT/HCPCS: 36415; 74177; 80053; 81001; 82150; 83605; 83690; 85025; 87070; 87075; 87205; 87635; 88304; 93005; 96361; 96365; 96366; 96367; 96368; 96374; 96375; 96376; 99285

== ENCOUNTER → 2020-07-18 | Outpatient (CLI) | payer OTHER ==
--- NOTE | 2020-07-18 16:40 | US ---
EXAMINATION TYPE: US kidneys/renal and bladder DATE OF EXAM: 07/18/2020 COMPARISON: CT 202007/18/2020 CLINICAL HISTORY: R93.421 ABN KIDNEY RESULTS. EXAM MEASUREMENTS: Right Kidney: 10.9 x 5.5 x 6.3 cm Left Kidney: 12.4 x 5.2 x 5.1 cm Right Kidney: 3.6 x 2.8 x 3.0cm solid appear mass inferior pole no hydronephrosis or shadowing mary l calculi. Left Kidney: No hydronephrosis or shadowing renal calculi are seen . No left renal masses. Bladder: wnl Bilateral Jets seen: yes Prostate: enlarged at 5.6 x 4.2 x 5.2cm. This abuts the base of the urinary bladder. IMPRESSION: 1. Solid right lower pole renal mass measuring 3.[address] same date. This is worrisome for renal cell carcinoma. Urologic evaluation is recommended. 2. Enlarged prostate gland measuring 5.6 cm abuts the base of the urinary bladder. Urologic evaluatio n is recommended.
== END | disposition home or self-care (01) ==
LOC: RADUSWWP 14:37
PROVIDERS: ATTEND Family Medicine
DX: N28.89 Other specified disorders of kidney and ureter (principal); N40.0 Benign prostatic hyperplasia without lower urinary tract symptoms
CPT/HCPCS: 76770

== ENCOUNTER → 2020-07-18 | Outpatient (CLI) | payer OTHER ==
--- NOTE | 2020-07-18 14:57 | CT ---
EXAMINATION TYPE: CT abdomen pelvis wo/w con DATE OF EXAM: 07/18/2020 COMPARISON: October 17 HISTORY: Right renal mass. CT DLP: 2676.6 mGycm CONTRAST: CT scan of the abdomen and pelvis is performed with Oral Contrast and without and with IV Contrast, p atient injected with 100 mL of Isovue 300. FINDINGS: LUNG BASES-: No visible nodule. No infiltrate. LIVER/GB: The gallbladder surgically absent. No space occupying hepatic lesion. Biliary tree is of normal caliber. PANCREAS: No inflammation. No distinct mass. SPLEEN: No splenic enlargement. No lesion seen. ADRENALS: No nodule. No thickening. KIDNEYS/BLADDER: No hydronephrosis. No nephrolithiasis. Redemonstrated is a 3.5 x 3.6 cm solid enha ncing mass lower pole of the right kidney. Malignancy is not excluded. No additional solid masses are seen. Tiny cyst measuring less than 1 cm midpole left kidney and mid to upper pole right kidney. Uri nary bladder grossly unremarkable. BOWEL: Normal appendix. Normal bowel caliber. No inflammation. Moderate sigmoid diverticulosis with out diverticulitis. GENITAL ORGANS: Prostate gland enlargement noted. LYMPH NODES: No greater than 1cm abdominal or pelvic lymph nodes are appreciated. AORTA: No significant abnormality. OSSEOUS STRUCTURES: No significant abnormality is seen. OTHER: No significant additional abnormality is seen. IMPRESSION: 1. Redemonstrated is a 3.5 x 3.6 cm solid enhancing mass lower pole of the right kidney. Malignancy i s not excluded.
== END | disposition home or self-care (01) ==
LOC: RADCTMAIN 12:38
PROVIDERS: ATTEND Physician Assistant
DX: N28.89 Other specified disorders of kidney and ureter (principal)
CPT/HCPCS: 74178; Q9967 ×2